=== PATIENT | female | born 1945 | race Caucasian/White ===

== ENCOUNTER 2023-06-08 16:23 | Emergency (ER) | payer OTHER ==
[2023-06-08 16:27] VITALS: BP 120/70; PULSE 80; RESP 18; TEMP 98.1; BMI 31.8
[2023-06-08 17:36] LABS: BASO % 0.3 % (0-2.0); EOS % 2.9 % (0-4.5); HEMATOCRIT 39.4 % (32.4-45.2); HEMOGLOBIN 13.6 GM/dL (10.7-15.3); LYMPH % 32.7 % (8-40); MCH 31.1 pg (25.7-33.7); MCHC 34.6 g/dl (32.0-36.0); MEAN CELL VOLUME 90.1 fl (80-96); MONO % 9.7 % (3.8-10.2); NEUT % 54.4 % (42.8-82.8); PLATELET COUNT 192 10^3/uL (134-434); RBC 4.38 M/mm3 (3.60-5.2); RDW 13.1 % (11.6-15.6); WHITE BLOOD COUNT 4.1 K/mm3 (4.0-10.0)
[2023-06-08 17:56] LABS: POTASSIUM 4.1 mmol/L (3.5-5.1)
[2023-06-08 17:58] LABS: ALBUMIN 4.1 g/dl (3.4-5.0); CALCIUM 9.4 mg/dL (8.5-10.1)
[2023-06-08 18:02] LABS: CREATININE 1.2 mg/dL (0.55-1.3)
[2023-06-08 18:03] LABS: BILIRUBIN,TOTAL 0.3 mg/dL (0.2-1); TOT PROT 7.4 g/dl (6.4-8.2)
[2023-06-08 20:10] LABS: EPI CELLS 27 /uL (0-25.1); HYALINE CASTS 0 /uL (0-3.1); URINE APPEARANCE CLEAR; URINE BACTERIA 162 /uL (0-1359); URINE BILIRUBIN NEGATIVE (NEGATIVE); URINE COLOR YELLOW; URINE GLUCOSE (UA) NEGATIVE (NEGATIVE); URINE KETONE NEGATIVE (NEGATIVE); URINE LEUK ESTERASE 2+ (NEGATIVE); URINE NITRITE NEGATIVE (NEGATIVE); URINE PROTEIN NEGATIVE (NEGATIVE); URINE RBC 10 /uL (0-23.9); URINE UROBILINOGEN 0.2 mg/dL (0.2-1.0); URINE WBC 52 /uL (0-25.8)
== END 2023-06-08 19:58 | disposition home or self-care (01) ==
LOC: JER 16:23
DX: R42 Dizziness and giddiness (principal)
CPT/HCPCS: 36415; 70450-TC; 71046-TC-FY; 80053; 81003; 84484; 85025; 87086; 93005; 93010; 99285-25